=== PATIENT | male | born 1985 | race Caucasian/White ===

== ENCOUNTER 2020-05-11 04:18 | Emergency (ER) | payer MEDICAID ==
[~2020-05-11] VITALS: Ht 182.9 cm; Wt 92.5 kg
[2020-05-11 04:30] VITALS: Ht 182.9 cm; Wt 92.5 kg
[2020-05-11 05:41] VITALS: BP 126/90
== END 2020-05-11 05:41 | disposition home or self-care (01) ==
LOC: ED 04:18
DX: N34.2 Other urethritis (principal); A64 Unspecified sexually transmitted disease; J45.909 Unspecified asthma, uncomplicated
CPT/HCPCS: 87491; 87591; J0696